=== PATIENT | female | born 1965 | race Caucasian/White ===

== ENCOUNTER → 2017-03-14 | Outpatient (CLI) | payer BC ==
[~2017-03-14] MED LIST: ALPRAZOLAM PO; HYDROCODONE-APA1 T30 PO
--- NOTE | ~2017-03-14 | PFT ---
[id number] [facility]. [place], [place] [address] [id number] O MR#: [id number] NAME: JOSE VILLAFUERTE ROOM: SEX: F STUDY DATE/TIME: 03/21/2017 : 1965 AGE: 51 STUDY DESCRIPTION: Attending Physician: Cristy Collins M.D. Referring Physician: Cristy Collins M.D. Primary Care Physician: Cristy Collins M.D. PULMONARY DIAGNOSTIC REPORT EXAM Pulmonary function test. FINDINGS Spirometry shows no definite obstructive defect. There is no response to bronchodilators. Flow volume loop shows some variability, but possible mild obstruction. Lung volumes show a normal total lung capacity. Diffusion capacity is low normal. Overall fairly unremarkable PFT. Dictated by... Marbin Bolivar TD: 03/21/2017 09:21 JOB #: [id number] PULMONARY DIAGNOSTIC REPORT Page 1 of 1
== END | disposition home or self-care (01) ==
LOC: CRC 12:47
DX: J20.9 Acute bronchitis, unspecified (principal)
CPT/HCPCS: 94060; 94726; 94729